=== PATIENT | female | born 1985 | race Asian ===

== ENCOUNTER 2016-09-07 10:54 | Inpatient (IN) | payer SELFPAY ==
[~2016-09-07] VITALS: Ht 164 cm; Wt 69.4 kg
[2016-09-07] MEDS ORDERED: PRENATAL VITAMI1 TA2 PO (11:30)
[2016-09-07] MEDS ORDERED: OXYTOCIN 10 UNITS/ML VIAL IM SCH (11:35)
[2016-09-07] MEDS ORDERED: LACTATED RINGERS 1,000 ML IV SCH (11:35)
[2016-09-07] MEDS ORDERED: OXYTOCIN 20 UNITS/LR PREMIX 1,000 ML IV SCH (11:35)
[2016-09-07] MEDS ORDERED: PROMETHAZINE 25 MG/ML VIAL IM PRN (11:35)
[2016-09-07] MEDS ORDERED: NALBUPHINE 10 MG/ML AMP IVP PRN (11:35)
[2016-09-07] MEDS ORDERED: AMPICILLIN 2,000 MG in NACL 0.9% 100 ML IV SCH (11:44)
[2016-09-07] MEDS ORDERED: AMPICILLIN 2,000 MG VIAL ONE (13:22)
[2016-09-07] MEDS ORDERED: OXYTOCIN 20 UNITS/LR PREMIX 1,000 ML IV ONE (13:25)
[2016-09-07] MEDS ORDERED: AMPICILLIN 1,000 MG in NACL 0.9% 50 ML IV SCH (16:00)
[2016-09-07] MEDS ORDERED: ROPIVACAINE 0.2%/NS PREMIX 250 ML EPI ONE (16:40)
[2016-09-07] MEDS ORDERED: ROPIVACAINE 0.2%/NS PREMIX 250 ML EPI SCH (17:05)
[2016-09-07] MEDS ORDERED: AMPICILLIN 1,000 MG VIAL ONE ×2 (17:25→21:25)
[2016-09-07] MEDS ORDERED: OXYTOCIN 10 UNITS/ML VIAL ONE (21:32)
[2016-09-08] MEDS ORDERED: AMPICILLIN 1,000 MG VIAL ONE (02:00)
[2016-09-08] MEDS ORDERED: METHYLERGONOVINE 0.2 MG/ML AMP IM PRN (04:05)
[2016-09-08] MEDS ORDERED: WITCH HAZEL 40 PAD PACKAGE TP PRN (04:05)
[2016-09-08] MEDS ORDERED: oxyCODONE/APAP 5/325 MG 1 TAB TAB PO PRN (04:05)
[2016-09-08] MEDS ORDERED: OXYTOCIN 10 UNITS/ML VIAL IM PRN (04:05)
[2016-09-08] MEDS ORDERED: TEMAZEPAM 15 MG CAP PO PRN (04:05)
[2016-09-08] MEDS ORDERED: MEASLES, MUMPS, AND RUBELLA 1 VIAL SQVAC PRN (04:05)
[2016-09-08] MEDS ORDERED: BENZOCAINE/MENTHOL 20%-0.5% 60 GM CAN TP PRN (04:05)
--- NOTE | 2016-09-08 08:36 | NUR ---
PATIENT HAS BEEN SCREENED AND CATEGORIZED LOW NUTRITION RISK. PATIENT WILL BE SEEN WITHIN 7 DAYS OF ADMISSION. 09/14/[address]
[2016-09-08] MEDS: IBUPROFEN 800 MG TAB PO PRN ×2 (09:38→17:38)
[2016-09-08] MEDS ORDERED: INFLUENZA VIRUS VACCINE QUAD 0.5 ML SYR IMVAC SCH (11:00)
[2016-09-08] MEDS ORDERED: DOCUSATE SOD/SENNA 50/8.6 MG 1 TAB PO SCH (21:00)
[2016-09-08] MEDS: HYDROcodone/APAP 5/325 MG 1 TAB TAB PO PRN (21:55)
[2016-09-09] MEDS: HYDROcodone/APAP 5/325 MG 1 TAB TAB PO PRN (07:15)
[2016-09-09] MEDS ORDERED: SODIUM PHOSPHATE 118 ML ENEM RC SCH (08:46)
== END 2016-09-09 14:05 | disposition home or self-care (01) | DRG 775 ==
LOC: MFCC 10:54
PROVIDERS: ADMIT Obstetrics & Gynecology; ATTEND Obstetrics & Gynecology
PROC: 10E0XZZ Delivery of Products of Conception, External Approach (ICD-10-PCS; principal; 2016-09-07)
PROC: 0W8NXZZ Division of Female Perineum, External Approach (ICD-10-PCS; 2016-09-07)
DX: O80 Encounter for full-term uncomplicated delivery (principal); Z3A.38 38 weeks gestation of pregnancy; Z37.0 Single live birth